=== PATIENT | male | born 1965 | race African-American/Black ===

== ENCOUNTER 2019-11-25 16:44 | Inpatient (IN) | payer SELFPAY ==
--- NOTE | 2019-11-25 16:53 | PDOC ---
Rapid Medical Evaluation Time Seen by Provider: 11/25/19 16:47 Medical Evaluation: 11/25/19 16:47 HPI: 54 year old male no pmhx presenting with fever chills abdominal pain w/ associated N/V/D Also complaining of mild CP PE: Diaphoretic CTA RRR Abdomen nonttp A/P: EKG Chest XR Labs Tylenol Pt to precede to ED for further evaluation and treatment.
[2019-11-25] MEDS ORDERED: ACETAMINOPHEN 500 MG TABLET (FP) PO ONE (16:54)
[2019-11-25] MEDS ORDERED: SODIUM CHLORIDE 0.9% 500 ML INFUS.BAG IV ONE ×2 (16:55→18:41)
[2019-11-25] MEDS ORDERED: ACETAMINOPHEN 325 MG TABLET (FP) ONE (17:19)
[2019-11-25] MEDS ORDERED: LACTATED RINGERS SOLUTION 1000 ML INFUS.BAG IV ONE (17:25)
--- NOTE | 2019-11-25 17:42 | PDOC ---
History of Present Illness - General Chief Complaint: Nausea/Vomiting Stated Complaint: FEVER/NAUSEA/DIARRHEA Time Seen by Provider: 11/25/19 16:47 History Source: Patient Exam Limitations: No Limitations - History of Present Illness Initial Comments: 11/25/19 17:42 54y previously healthy M presenting w 2d subjective fevers, white productive cough, body aches, diarrhea. taking tylenol w/o relief. no known covid exposures. Pt endorses being unable to drink enough PO fluids to replace fluids lost w diarrhea. Denies n/v, SOB, dysuria. Past History - Medical History Allergies/Adverse Reactions: Allergies Allergy/AdvReac Type Severity Reaction Status Date / Time No Known Allergies Allergy Verified 11/25/19 16:47 COPD: No HTN: Yes - Immunization History Immunization Up to Date: Yes - Psycho-Social/Smoking History Smoking History: Current every day smoker Information on smoking cessation initiated: No - Substance Abuse Hx (Audit-C & DAST Scrn) How often the patient has a drink containing alcohol: Never Score: In Men: 4 or > Positive; In Women: 3 or > Positive: 0 Screen Result (Pos requires Nsg. Audit-10AR): Negative In the last yr the pt used illegal drug/Rx for NonMed reason: No Score: Yes response is considered Positive: 0 Screen Result (Positive result requires Nsg. DAST-10): Negative Review of Systems - Review of Systems Constitutional: Yes: Chills, Fever HEENTM: No: Eye Pain, Nose Congestion Respiratory: Yes: Cough. No: Shortness of Breath Cardiac (ROS): No: Chest Pain ABD/GI: Yes: Diarrhea. No: Constipated, Nausea, Vomiting : No: Burning, Dysuria Musculoskeletal: Yes: Muscle Pain. No: Back Pain Integumentary: No: Bruising, Flushing Neurological: No: Headache, Seizure Psychiatric: No: Anxiety, Depression Endocrine: No: Intolerance to Cold, Intolerance to Heat Hematologic/Lymphatic: No: Anemia, Blood Clots *Physical Exam - Vital Signs Last Vital Signs Temp Pulse Resp BP Pulse Ox 102.3 F H 88 20 175/103 H 95 11/25/19 16:48 11/25/19 16:48 11/25/19 16:48 11/25/19 16:48 11/25/19 16:48 - Physical Exam General Appearance: Yes: Nourished, Appropriately Dressed, Mild Distress HEENT: positive: EOMI, SUPRIYA, Normal Voice, Hearing Grossly Normal. negative: Sc leral Icterus (R), Scleral Icterus (L) Respiratory/Chest: positive: Lungs Clear, Normal Breath Sounds. negative: Chest Tender, Respiratory Distress Cardiovascular: positive: Regular Rhythm, Regular Rate, S1, S2, Systolic Murmur Gastrointestinal/Abdominal: positive: Normal Bowel Sounds, Flat, Soft. negative: Tender, Organomegaly Musculoskeletal: negative: CVA Tenderness (R), CVA Tenderness (L) Extremity: positive: Delayed Capillary Refill Integumentary: positive: Normal Color, Dry, Warm. negative: Rash Neurologic: positive: Fully Oriented, Alert, Normal Mood/Affect, Normal Response ED Treatment Course - LABORATORY CBC & Chemistry Diagram: 11/25/19 17:30 11/25/19 17:30 Medical Decision Making - Medical Decision Making 11/25/19 17:56 CXR - increased density R medial base atelectasis vs infiltrate EKG - sinus rhythm w arrhythmia, HR 61, QTc 390, TWI V1-2 WBC 13 w L shift --- 54y previously healthy M presenting w 2d subjective fevers, white productive cough, body aches, diarrhea. likely d/t covid PNA (infiltrate R medial base) Given 2L fluids, tylenol, ibuprofen, azithromycin, rocephin, decadron, reglan, KCl Admit m/s hospitalist for covid PNA, inability to replete fluids via PO PCP - none, [facility] Discharge - Discharge Information Problems reviewed: Yes Clinical Impression/Diagnosis: Suspected COVID-19 virus infection PNA (pneumonia) Qualifiers: Pneumonia type: due to unspecified organism Laterality: right Lung location: lower lobe of lung Qualified Code(s): J18.9 - Pneumonia, unspecified organism Condition: Improved - Admission Yes - Follow up/Referral - Patient Discharge Instructions - Post Discharge Activity
[2019-11-25] MEDS ORDERED: DEXAMETHASONE SOD PHOSPHATE 10 MG/1 ML VIAL IVPUSH ONE (17:54)
[2019-11-25] MEDS ORDERED: IBUPROFEN 600 MG TABLET (FP) PO ONE ×2 (18:02→18:32)
[2019-11-25 18:08] LABS: BASO % 0.4 % (0-2.0); HEMATOCRIT 44.2 % (35.4-49); HEMOGLOBIN 14.7 GM/dL (11.7-16.9); LYMPH % 9.1 % (8-40); MCH 29.1 pg (25.7-33.7); MCHC 33.3 g/dl (32.0-35.9); MEAN CELL VOLUME 87.4 fl (80-96); MEAN PLT VOLUME 9.2 fl (7.5-11.1); MONO % 5.9 % (3.8-10.2); NEUT % 84.6 % (42.8-82.8); PLATELET COUNT 237 K/MM3 (134-434); RBC 5.06 M/mm3 (4.00-5.60); RDW 14.1 % (11.9-15.9); WHITE BLOOD COUNT 13.4 K/mm3 (4.0-10.0)
[2019-11-25 18:16] LABS: BILIRUBIN,DIRECT 0.2 mg/dL (0.0-0.2); INR 1.43 (0.83-1.09); PROTHROMBIN TIME (PATIENT) 16.9 SEC (9.7-13.0)
[2019-11-25 18:18] LABS: ACTIVATED PTT 32.6 SECONDS (25.2-36.5)
[2019-11-25 18:22] LABS: ALBUMIN 3.4 g/dl (3.4-5.0); ALK PHOS 98 U/L (45-117); ANION GAP 10 MMOL/L (8-16); BILIRUBIN,TOTAL 0.6 mg/dL (0.2-1); BLOOD UREA NITROGEN 9.3 mg/dL (7-18); CHLORIDE 96 mmol/L (98-107); CO2 26 mmol/L (21-32); CREATININE 1.1 mg/dL (0.55-1.3); GLUCOSE,RANDOM 117 mg/dL (74-106); LDH 314 U/L (87-246); LIPASE 116 U/L (73-393); POTASSIUM 3.1 mmol/L (3.5-5.1); SGOT/AST 64 U/L (15-37); SGPT/ALT 67 U/L (13-61); SODIUM 132 mmol/L (136-145); TOT PROT 7.6 g/dl (6.4-8.2)
[2019-11-25] MEDS ORDERED: METOCLOPRAMIDE HCL INJECTION 10 MG/2 ML VIAL IVPB ONE (18:24)
[2019-11-25] MEDS ORDERED: POTASSIUM CHLORIDE ORAL LIQUID 20 MEQ/15 ML PO ONE (18:25)
[2019-11-25] MEDS ORDERED: METOCLOPRAMIDE HCL INJECTION 10 MG/2 ML VIAL ONE (18:31)
[2019-11-25] MEDS ORDERED: DEXAMETHASONE SOD PHOSPHATE 10 MG/1 ML VIAL ONE (18:31)
[2019-11-25] MEDS ORDERED: POTASSIUM CHLORIDE ORAL LIQUID 20 MEQ/15 ML ONE (18:32)
--- NOTE | 2019-11-25 19:04 | PDOC ---
Documentation entered by Donna Dorado SCRIBE, acting as scribe for Brandy Key MD. Brandy Key MD: This documentation has been prepared by the Estrada gramajo Xhesika, SCRIBE, under my direction and personally reviewed by me in its entirety. I confirm that the documentation accurately reflects all work, treatment, procedures, and medical decision making performed by me. Attending Attestation - Resident Resident Name: Elijah Sanchez - ED Attending Attestation I have performed the following: I have examined & evaluated the patient, The case was reviewed & discussed with the resident, I agree w/resident's findings & plan, Exceptions are as noted - HPI HPI: 11/25/19 17:47 The patient is a 54y/o m with no pmh who presents to the ED with subjective fevers, white productive cough, bodyaches, and profuse diarrhea unable to keep himself hydrated at home, as well as profuse diaphoresis. Pt reports he has been taking Tylenol with no relief of symptoms. Denies any specific areas of worsened pain (no specific CP, AP, back pain). Has been taking OTC medications for sxs but no abx or other Rx for symptoms. 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 Patient expresses concern for COVID-19. The patient denies shortness of breath, headache and dizziness. Denies nausea, vomiting. Denies dysuria, frequency, urgency and hematuria. Allergies: NKDA - Physicial Exam PE: 11/25/19 18:45 GENERAL: ill-appearing, diaphoretic, A/Ox4, mild distress, answers questions appropriately, appears dehydrated, wearing face mask HEENT: diaphoreic, PERRLA, EOMI, dry mucous membranes NECK/BACK: no midline ttp, no spinal stepoff or deformity, no hematoma, full ROM, neck supple CARDIOVASCULAR: regular rhythm, no MGR, strong peripheral pulses, capillary refill 4 seconds, no edema LUNGS/RESPIRATORY: tachypneic, increased WOB, cough noted, coarse breath sounds bilaterally without focal area of decreased breath sounds GI/ABDOMEN: symmetric [id number], normoactive BS, soft, no ttp, no midline pulsatile masses : no CVA tenderness MSK/EXTREMITIES: no muscle atrophy, no acute deformity SKIN: warm, diaphoretic, no pallor, no jaundice, no rash, no pathologic- appearing bruising, no skin breakdown, no cuts, no lesions NEUROLOGICAL: GCS 15, CN II-XII grossly intact, 5/5 strength proximally and di stally, no facial droop - Medical Decision Making 11/25/19 18:47 Patient presents with fever, malaise, diaphoresis, profuse diarrhea, head-to-toe body achesc/f COVID-19 in the setting of COVID-19 pandemic. DDX IBNLT: likely COVID-19 with c/f sequelae (ARDS, myocarditis). Superimposed bacterial PNA considered as well. COPD/asthma/CHF exacerbation or other underlying lung disease possible contributing factor. Less likely influenza, bronchitis, other viral URI, laryngitis, tracheitis, etc. Initial Vital Signs Temp Pulse Resp BP Pulse Ox 102.3 F H 88 20 175/103 H 95 11/25/19 16:48 11/25/19 16:48 11/25/19 16:48 11/25/19 16:48 11/25/19 16:48 EKG: Reviewed; results as noted in ECG Review section. CXR: Diffuse bilateral patchy consolidations, right basilar consolidation c/w possible PNA. Provider Orders Category Date Time Status Decision to Admit to Hospital Routine Admission 11/25/19 18:26 Active TYPE AND SCREEN Stat Blood Bank 11/25/19 17:30 Completed ELECTROCARDIOGRAM [CARD] Stat Cardiology 11/25/19 16:53 Ordered EKG needed NOW Care 11/25/19 16:54 Completed Isolation Precautions As directed Care 11/25/19 17:26 Active Pulse Oximetry Continuous Care 11/25/19 17:27 Active ACTIVATED PTT Stat Lab 11/25/19 17:30 Completed BILIRUBIN,DIRECT Stat Lab 11/25/19 17:30 Completed CARDIAC PROFILE ([facility]) Stat Lab 11/25/19 17:30 Completed CBC WITH DIFFERENTIAL Stat Lab 11/25/19 17:30 Completed CK INDEX Stat Lab 11/25/19 17:30 Completed CK MB Stat Lab 11/25/19 17:30 Completed COMP METABOLIC PANEL Stat Lab 11/25/19 17:30 Completed COVID-19 Stat Lab 11/25/19 17:30 Received CRP [C-REACTIVE PROTEIN] Stat Lab 11/25/19 17:30 Completed FERRITIN Stat Lab 11/25/19 17:30 Completed LDH Stat Lab 11/25/19 17:30 Completed LIPASE Stat Lab 11/25/19 17:30 Completed PT/INR (PROTHROMBIN TIME) Stat Lab 11/25/19 17:30 Completed Acetaminophen [Tylenol -] Medication 11/25/19 17:19 Discontinued 975 mg .ROUTE .STK-MED ONE Acetaminophen [Tylenol -] Medication 11/25/19 16:54 Discontinued 975 mg PO ONCE ONE Azithromycin Ivpb [Zithromax Ivpb -] 500 mg Medication 11/25/19 19:07 Discontinued Dextrose 5%-Water - [D5w -] 250 ml IVPB ONCE Ceftriaxone [Rocephin -] 1 gm Medication 11/25/19 19:07 Discontinued Dextrose 5%-Water - [D5w -] 100 ml IVPB ONCE Dexamethasone Injection [Decadron Injection -] Medication 11/25/19 18:31 Discontinued 10 mg .ROUTE .STK-MED ONE Dexamethasone Injection [Decadron Injection -] Medication 11/25/19 17:54 Discontinued 10 mg IVPUSH ONCE ONE Ibuprofen [Motrin -] Medication 11/25/19 18:32 Discontinued 600 mg PO .STK-MED ONE Ibuprofen [Motrin -] Medication 11/25/19 18:02 Discontinued 600 mg PO ONCE ONE Lactated Ringers Solution Medication 11/25/19 17:25 Discontinued 1,000 ml IV ONCE ONE Metoclopramide HCl Injection [Reglan Injection -] Medication 11/25/19 18:31 Discontinued 10 mg .ROUTE .STK-MED ONE Metoclopramide HCl Injection [Reglan Injection -] Medication 11/25/19 18:24 Discontinued 10 mg IVPB ONCE ONE Potassium Chloride [Potassium Chloride Oral Liquid] Medication 11/25/19 18:32 Discontinued 40 meq .ROUTE .STK-MED ONE Potassium Chloride [Potassium Chloride Oral Liquid] Medication 11/25/19 18:25 Discontinued 40 meq PO ONCE ONE Sodium Chloride [Normal Saline -] Medication 11/25/19 16:55 Discontinued 1,000 ml IV ONCE ONE Sodium Chloride [Normal Saline -] Medication 11/25/19 18:41 Discontinued 1,000 ml IV ONCE ONE IV Insert NOW Phy Order 11/25/19 16:54 Active CXRPORT [CHEST X-RAY PORTABLE*] [RAD] Stat Radiology 11/25/19 17:26 Completed Medications Discontinued Medications Generic Name Dose Route Start Last Admin Trade Name Dagoberto PRN Reason Stop Dose Admin Acetaminophen 975 mg 11/25/19 16:54 11/25/19 17:20 Tylenol - PO 11/25/19 16:55 975 mg ONCE ONE Administration Acetaminophen Confirm 11/25/19 17:19 Tylenol - Administered 11/25/19 17:20 Dose 975 mg .ROUTE .STK-MED ONE Dexamethasone Sodium Phosphate 10 mg 11/25/19 17:54 11/25/19 18:25 Decadron Injection - IVPUSH 11/25/19 17:55 10 mg ONCE ONE Administration Dexamethasone Sodium Phosphate Confirm 11/25/19 18:31 Decadron Injection - Administered 11/25/19 18:32 Dose 10 mg .ROUTE .STK-MED ONE Azithromycin 500 mg/ Dextrose 250 mls @ 250 mls/hr 11/25/19 19:07 IVPB 11/25/19 20:06 ONCE ONE Ceftriaxone Sodium 1 gm/ 100 mls @ 200 mls/hr 11/25/19 19:07 Dextrose IVPB 11/25/19 19:36 ONCE ONE Azithromycin Confirm 11/25/19 20:08 Zithromax 500mg Ivpb (Pre-Docked) Administered 11/25/19 20:09 Dose 500 mg in 250 mls @ ud IVPB .STK-MED ONE Ibuprofen 600 mg 11/25/19 18:02 11/25/19 18:25 Motrin - PO 11/25/19 18:03 600 mg ONCE ONE Administration Ibuprofen Confirm 11/25/19 18:32 Motrin - Administered 11/25/19 18:33 Dose 600 mg PO .STK-MED ONE Lactated Ringer's 1,000 ml 11/25/19 17:25 11/25/19 17:43 Lactated Ringers Solution IV 11/25/19 17:26 1,000 ml ONCE ONE Administration Metoclopramide HCl 10 mg 11/25/19 18:24 11/25/19 18:52 Reglan Injection - IVPB 11/25/19 18:25 10 mg ONCE ONE Administration Metoclopramide HCl Confirm 11/25/19 18:31 Reglan Injection - Administered 11/25/19 18:32 Dose 10 mg .ROUTE .STK-MED ONE Potassium Chloride 40 meq 11/25/19 18:25 11/25/19 18:45 Potassium Chloride Oral Liquid PO 11/25/19 18:26 40 meq ONCE ONE Administration Potassium Chloride Confirm 11/25/19 18:32 Potassium Chloride Oral Liquid Administered 11/25/19 18:33 Dose 40 meq .ROUTE .STK-MED ONE Sodium Chloride 1,000 ml 11/25/19 16:55 11/25/19 17:43 Normal Saline - IV 11/25/19 16:56 Not Given ONCE ONE Sodium Chloride 1,000 ml 11/25/19 18:41 11/25/19 18:45 Normal Saline - IV 11/25/19 18:42 1,000 ml ONCE ONE Administration Lab Results WBC 13.4 K/mm3 (4.0-10.0) H 11/25/19 17:30 RBC 5.06 M/mm3 (4.00-5.60) 11/25/19 17:30 Hgb 14.7 GM/dL (11.7-16.9) 11/25/19 17:30 Hct 44.2 % (35.4-49) 11/25/19 17:30 MCV 87.4 fl (80-96) 11/25/19 17:30 MCH 29.1 pg (25.7-33.7) 11/25/19 17:30 MCHC 33.3 g/dl (32.0-35.9) 11/25/19 17:30 RDW 14.1 % (11.9-15.9) 11/25/19 17:30 Plt Count 237 K/MM3 (134-434) 11/25/19 17:30 MPV 9.2 fl (7.5-11.1) 11/25/19 17:30 Absolute Neuts (auto) 11.3 K/mm3 (1.5-8.0) H 11/25/19 17:30 Neutrophils % 84.6 % (42.8-82.8) H 11/25/19 17:30 Lymphocytes % 9.1 % (8-40) 11/25/19 17:30 Monocytes % 5.9 % (3.8-10.2) 11/25/19 17:30 Eosinophils % 0.0 % (0-4.5) 11/25/19 17:30 Basophils % 0.4 % (0-2.0) 11/25/19 17:30 Nucleated RBC % 0 % (0-0) 11/25/19 17:30 PT with INR 16.90 SEC (9.7-13.0) H 11/25/19 17:30 INR 1.43 (0.83-1.09) H 11/25/19 17:30 PTT (Actin FS) 32.6 SECONDS (25.2-36.5) 11/25/19 17:30 Sodium 132 mmol/L (136-145) L 11/25/19 17:30 Potassium 3.1 mmol/L (3.5-5.1) L 11/25/19 17:30 Chloride 96 mmol/L (98-107) L 11/25/19 17:30 Carbon Dioxide 26 mmol/L (21-32) 11/25/19 17:30 Anion Gap 10 MMOL/L (8-16) 11/25/19 17:30 BUN 9.3 mg/dL (7-18) 11/25/19 17:30 Creatinine 1.1 mg/dL (0.55-1.3) 11/25/19 17:30 Est GFR (CKD-EPI)AfAm 87.13 11/25/19 17:30 Est GFR (CKD-EPI)NonAf 75.17 11/25/19 17:30 Random Glucose 117 mg/dL (74-106) H 11/25/19 17:30 Calcium 9.0 mg/dL (8.5-10.1) 11/25/19 17:30 Ferritin 426.9 ng/ml (8-388) H 11/25/19 17:30 Total Bilirubin 0.6 mg/dL (0.2-1) 11/25/19 17:30 Direct Bilirubin 0.2 mg/dL (0.0-0.2) 11/25/19 17:30 AST 64 U/L (15-37) H 11/25/19 17:30 ALT 67 U/L (13-61) H 11/25/19 17:30 Alkaline Phosphatase 98 U/L (45-117) 11/25/19 17:30 LD Total 314 U/L (87-246) H 11/25/19 17:30 Creatine Kinase 442 U/L (26-308) H 11/25/19 17:30 Creatine Kinase Index No Result Required. 11/25/19 17:30 CK-MB (CK-2) < 1.0 ng/mL (0.5-3.6) 11/25/19 17:30 Troponin I < 0.02 ng/ml (0.00-0.05) 11/25/19 17:30 C-Reactive Protein 15.4 MG/DL (0.00-0.3) H 11/25/19 17:30 Total Protein 7.6 g/dl (6.4-8.2) 11/25/19 17:30 Albumin 3.4 g/dl (3.4-5.0) 11/25/19 17:30 Lipase 116 U/L (73-393) 11/25/19 17:30 Blood Type O POSITIVE 11/25/19 17:30 Antibody Screen Negative 11/25/19 17:30 11/25/19 19:42 The patient remains with diaphoresis, has had multiple episodes of diarrhea in the ED, has RLL PNA requiring abx. The Pt is high-risk for home decompensation, has young child at home and is very concerned about spreading to his child, and is unsafe for discharge at this time. They require further hospital observation, workup, and treatment. Admission per resident note. Discharge - Discharge Information Problems reviewed: Yes Clinical Impression/Diagnosis: Suspected COVID-19 virus infection PNA (pneumonia) Qualifiers: Pneumonia type: due to unspecified organism Laterality: right Lung location: lower lobe of lung Qualified Code(s): J18.9 - Pneumonia, unspecified organism Condition: Improved - Admission Yes - Follow up/Referral - Patient Discharge Instructions - Post Discharge Activity
[2019-11-25] MEDS ORDERED: AZITHROMYCIN IVPB 500 MG in DEXTROSE 5%-WATER - 250 ML IVPB ONE (19:07)
[2019-11-25] MEDS ORDERED: AZITHROMYCIN IVPB 500 MG/250 ML BAG IVPB ONE (20:08)
--- NOTE | 2019-11-25 20:51 | HP ---
CHIEF COMPLAINT: fever, chills, diarrhea PCP: unable to recall name HISTORY OF PRESENT ILLNESS: 54yo M with PMhx of HTN and longstanding tobacco use who presents with 2 days of fevers, chills, diaphoresis, weakness and body aches. He explained that everything started two days ago when he thought it may be a cold of the flu. He figured some fluids and flu meds would help but instead he continued to feel worse. Yesterday the chills got really bad where he experiences profuse diaphoresis and cold spells. He has also had diarrhea that has not gotten any better. He endorses occasional headaches, dizziness, and achy joints. Denied dysuria, urinary frequency, SOB, CP, vertigo. 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 Home: lives with girlfriend and 6yo son Allergies No Known Allergies Allergy (Verified 11/25/19 16:47) HOME MEDICATIONS: Home Medications Medication Instructions Recorded Hydrochlorothiazide 25 mg PO DAILY 11/25/19 Lisinopril 10 mg PO DAILY 11/25/19 REVIEW OF SYSTEMS as per above PHYSICAL EXAMINATION Vital Signs - 24 hr 11/25/19 11/25/19 11/25/19 16:48 17:10 17:40 Temperature 102.3 F H Pulse Rate 88 88 Pulse Rate [ 86 Left Radial] Respiratory 20 26 H Rate Blood Pressure 175/103 H Blood Pressure 159/83 [Left Arm] O2 Sat by Pulse 95 97 97 Oximetry (%) 11/25/19 11/25/19 20:31 20:40 Temperature 97.8 F Pulse Rate Pulse Rate [ 62 Left Radial] Respiratory 18 Rate Blood Pressure Blood Pressure 137/74 [Left Arm] O2 Sat by Pulse 98 99 Oximetry (%) GENERAL: AAM, appears stated age, sleeping in ED bed but easily arousable, not feeling well but in no acute distress HEAD: Normal with no signs of trauma EYES: did not assess to minimize exposure due to possible COVID LUNGS: expiratory wheezing in LLL, otherwise CTA HEART: irregular, S1 and S2 with soft systolic murmur ABDOMEN: did not assess to minimize exposure due to possible COVID EXTREMITIES: did not assess to minimize exposure due to possible COVID NEUROLOGICAL: Cranial nerves II-XII grossly intact, normal speech PSYCHIATRIC: Cooperative and responds appropriately. Appropriate mood and affect. SKIN: did not assess to minimize exposure due to possible COVID Laboratory Results - last 24 hr 11/25/19 11/25/19 11/25/19 17:30 17:30 17:30 WBC 13.4 H RBC 5.06 Hgb 14.7 Hct 44.2 MCV 87.4 MCH 29.1 MCHC 33.3 RDW 14.1 Plt Count 237 MPV 9.2 Absolute Neuts (auto) 11.3 H Neutrophils % 84.6 H Lymphocytes % 9.1 Monocytes % 5.9 Eosinophils % 0.0 Basophils % 0.4 Nucleated RBC % 0 PT with INR 16.90 H INR 1.43 H PTT (Actin FS) 32.6 Sodium 132 L Potassium 3.1 L Chloride 96 L Carbon Dioxide 26 Anion Gap 10 BUN 9.3 Creatinine 1.1 Est GFR (CKD-EPI)AfAm 87.13 Est GFR (CKD-EPI)NonAf 75.17 Random Glucose 117 H Calcium 9.0 Ferritin 426.9 H Total Bilirubin 0.6 Direct Bilirubin AST 64 H ALT 67 H Alkaline Phosphatase 98 LD Total 314 H Creatine Kinase 442 H Creatine Kinase Index No Result Required. CK-MB (CK-2) < 1.0 Troponin I < 0.02 C-Reactive Protein Total Protein 7.6 Albumin 3.4 Lipase 116 Blood Type Antibody Screen 11/25/19 11/25/19 17:30 17:30 WBC RBC Hgb Hct MCV MCH MCHC RDW Plt Count MPV Absolute Neuts (auto) Neutrophils % Lymphocytes % Monocytes % Eosinophils % Basophils % Nucleated RBC % PT with INR INR PTT (Actin FS) Sodium Potassium Chloride Carbon Dioxide Anion Gap BUN Creatinine Est GFR (CKD-EPI)AfAm Est GFR (CKD-EPI)NonAf Random Glucose Calcium Ferritin Total Bilirubin Direct Bilirubin 0.2 AST ALT Alkaline Phosphatase LD Total Creatine Kinase Creatine Kinase Index CK-MB (CK-2) Troponin I C-Reactive Protein 15.4 H Total Protein Albumin Lipase Blood Type O POSITIVE Antibody Screen Negative ASSESSMENT/PLAN: 54yo M with PMhx of HTN and longstanding tobacco use who presents with 2 days of fevers, chills, diaphoresis, weakness and body aches, and diarrhea and is admitted for treatment of COVID vs PNA. #COVID vs PNA patient is satting 97% breathing comfotably on RA T 102.3F WBC 13.4 ferritin 426.9, LD 314, CK 442, CRP 15.4 CXR: medial right base atelectasis or infiltrate - ID consult - pulm consult - d-dimer - ceftriaxone + azithromycin for empiric coverage #HTN - restarted home HCTZ and lisinopril #PPX - DVT: lovenox #FEN - replete lyes PRN - sodium controlled diet - no standing fluids #Dispo: continue monitoring on medSur Family Medical History Family History: As Documented Visit type - Emergency Visit Emergency Visit: Yes ED Registration Date: 11/25/19 Care time: The patient presented to the Emergency Department on the above date and was hospitalized for further evaluation of their emergent condition. - New Patient This patient is new to me today: Yes Date on this admission: 11/25/19 - Critical Care Critical Care patient: No ATTENDING PHYSICIAN STATEMENT I saw and evaluated the patient. I reviewed the resident's note and discussed the case with the resident. I agree with the resident's findings and plan as documented. SUBJECTIVE: OBJECTIVE: ASSESSMENT AND PLAN:
[2019-11-25] MEDS ORDERED: CEFTRIAXONE 1 GM/50 ML BAG ONE (21:35)
[2019-11-25] MEDS: CEFTRIAXONE 1 GM in DEXTROSE 5%-WATER - 100 ML IVPB ONE ×2 (22:29→23:56)
[2019-11-25] MEDS: ENOXAPARIN NA (PORCINE) 40 MG/0.4 ML DISP.SYRIN SQ SCH (22:30)
[2019-11-25 22:57] VITALS: BMI 26.4
[2019-11-25] MEDS ORDERED: PT OWN MED DRAWER 7, Y5N ONE (23:34)
--- NOTE | 2019-11-26 03:50 | PN ---
Teaching Attending Note Name of Resident: Pj Blandon ATTENDING PHYSICIAN STATEMENT I saw and evaluated the patient. I reviewed the resident's note and discussed the case with the resident. I agree with the resident's findings and plan as documented. SUBJECTIVE: OBJECTIVE: ASSESSMENT AND PLAN: DOS 11/24 54 year old male with a PMhx notable for HTN and longstanding tobacco use who presents with complaints of fevers/chills x 2 days. Rule out COVID vs bacterial PNA #COVID vs PNA Stable respiratory status on room air CXR with possible infiltrate - Agree with antibiotics - ID/Pulmonary consults # Hyponatremia - likely related to dehydration in the setting of acute illness s/p IV fluids Repeat labs #HTN - For now hold home HCTZ in the setting of hyponatremia. Ok for lisinopril
[2019-11-26] MEDS ORDERED: ACETAMINOPHEN 325 MG TABLET (FP) PO ONE (04:55)
--- NOTE | 2019-11-26 08:06 | PN ---
Progress Note (short form) - Note Progress Note: PULMONARY CONSULTATION DICTATED 11/26/19 IMP FEVER/CHILLS SUSPECTED COVID-19 RLL PNEUMONIA HTN TOBACCO ABUSE ELEVATED LFTS PLAN O2 INHALED BRONCHODILATORS ABX PER ID TREND LFTS MONITOR INFLAMMATORY MARKERS CULTURES COVID PCR PENDING LEGIONELLA URINARY ANTIGEN SYMBICORT 160/4.[address] ALEJANDRO Problem List - Problems (1) Fever Code(s): R50.9 - FEVER, UNSPECIFIED (2) PNA (pneumonia) Code(s): J18.9 - PNEUMONIA, UNSPECIFIED ORGANISM Qualifiers: Pneumonia type: due to unspecified organism Laterality: right Lung location: lower lobe of lung Qualified Code(s): J18.9 - Pneumonia, unspecified organism (3) Suspected COVID-19 virus infection Code(s): Z20.828 - CONTACT W AND EXPOSURE TO OTH VIRAL COMMUNICABLE DISEASES (4) HTN (hypertension) Code(s): I10 - ESSENTIAL (PRIMARY) HYPERTENSION (5) Tobacco abuse Code(s): Z72.0 - TOBACCO USE (6) Tobacco abuse counseling Code(s): Z71.6 - TOBACCO ABUSE COUNSELING
[2019-11-26 09:41] LABS: BASO % 0.2 % (0-2.0); EOS % 0.5 % (0-4.5); LYMPH % 5.5 % (8-40); MCH 29.2 pg (25.7-33.7); MCHC 33.4 g/dl (32.0-35.9); MEAN CELL VOLUME 87.4 fl (80-96); MEAN PLT VOLUME 9.5 fl (7.5-11.1); NEUT % 89.8 % (42.8-82.8); PLATELET COUNT 251 K/MM3 (134-434); RBC 5.49 M/mm3 (4.00-5.60); RDW 14.5 % (11.9-15.9); WHITE BLOOD COUNT 15.3 K/mm3 (4.0-10.0)
[2019-11-26] MEDS: ENOXAPARIN NA (PORCINE) 40 MG/0.4 ML DISP.SYRIN SQ SCH (09:47)
[2019-11-26] MEDS ORDERED: HYDROCHLOROTHIAZIDE 25 MG TABLET (FP) PO SCH (10:00)
[2019-11-26] MEDS ORDERED: LISINOPRIL 10 MG TABLET (FP) PO SCH (10:00)
--- NOTE | 2019-11-26 10:05 | EKG ---
Test Reason : Blood Pressure : / mmHG Vent. Rate : 061 BPM Atrial Rate : 061 BPM P-R Int : 154 ms QRS Dur : 086 ms QT Int : 388 ms P-R-T Axes : 068 070 063 degrees QTc Int : 390 ms SINUS RHYTHM WITH MARKED SINUS ARRHYTHMIA , and occasional APC's POSSIBLE LEFT ATRIAL ENLARGEMENT BORDERLINE ECG NO PREVIOUS ECGS AVAILABLE Confirmed by MD Dhaliwal Daniel ([id number]) on 11/26/2019 10:05:15 AM Referred By: Confirmed By:Arias Dhaliwal MD
--- NOTE | 2019-11-26 10:05 | CON.ID ---
Consult Consult Specialty:: infectious diseases Referred by:: hospitalist Reason for Consultation:: cough,fever,r/o covid - History of Present Illness Chief Complaint: cough,fever,weakness History of Present Illness: 54yo M with PMhx of HTN and longstanding tobacco use who presents with 2 days of fevers, chills, diaphoresis, weakness and body aches. He explained that everything started two days ago when he thought it may be a cold of the flu. He figured some fluids and flu meds would help but instead he continued to feel worse. Yesterday the chills got really bad where he experiences profuse diaphoresis and cold spells. He has also had diarrhea that has not gotten any better. He endorses occasional headaches, dizziness, and achy joints. Denied dysuria, urinary frequency, SOB, CP, vertigo. COVID pending patient mentins that he went to somebodys house about 5 days back and then again 2 days back and actually he started feeling wierd about 5 days back and then became worse about 2 days back mentions that he also smokes weed but no iv drugs currently he is feeling better and breathing well - History Source History Provided By: Patient Limitations to Obtaining History: No Limitations - Smoking History Smoking history: Current every day smoker Have you smoked in the past 12 months: Yes Aproximately how many cigarettes per day: 5 Home Medications - Allergies Allergies/Adverse Reactions: Allergies Allergy/AdvReac Type Severity Reaction Status Date / Time No Known Allergies Allergy Verified 11/25/19 16:47 - Home Medications Home Medications: Ambulatory Orders Hydrochlorothiazide 25 mg PO DAILY 11/25/19 Lisinopril 10 mg PO DAILY 11/25/19 Review of Systems - Review of Systems Constitutional: reports: Fever, Weakness Eyes: reports: No Symptoms HENT: reports: No Symptoms Neck: reports: No Symptoms Cardiovascular: reports: No Symptoms Respiratory: reports: No Symptoms Gastrointestinal: reports: Diarrhea Genitourinary: reports: No Symptoms Musculoskeletal: reports: No Symptoms Integumentary: reports: No Symptoms Neurological: reports: No Symptoms Endocrine: reports: No Symptoms Hematology/Lymphatic: reports: No Symptoms Psychiatric: reports: No Symptoms Physical Exam Vital Signs: Vital Signs Temperature 98.1 F 11/26/19 05:00 Pulse Rate 47 L 11/26/19 05:00 Respiratory Rate 16 11/26/19 05:00 Blood Pressure 167/86 11/26/19 05:00 O2 Sat by Pulse Oximetry (%) 99 11/26/19 05:00 Constitutional: Yes: Well Nourished, No Distress, Calm HENT: Yes: Atraumatic, Normocephalic Neck: Yes: Supple, Trachea Midline Cardiovascular: Yes: Regular Rate and Rhythm Respiratory: Yes: Regular, CTA Bilaterally Gastrointestinal: Yes: Normal Bowel Sounds, Soft Musculoskeletal: Yes: WNL Extremities: Yes: WNL Neurological: Yes: Alert, Oriented Psychiatric: Yes: Alert, Oriented Labs: CBC, BMP 11/26/19 09:05 Imaging - Results Chest X-ray: Report Reviewed, Image Reviewed Assessment/Plan 54yo M with PMhx of HTN and longstanding tobacco use who presents with 2 days of fevers, chills, diaphoresis, weakness and body aches, and diarrhea and is admitted for treatment of COVID vs PNA. presumed COVID vs PNA #HTN dirrhoea fever i agree wiht the abx i am leaning towards pneumonia will await for all the results incentive nola rest as per the team
[2019-11-26 10:11] LABS: ALBUMIN 3.3 g/dl (3.4-5.0); BILIRUBIN,TOTAL 0.7 mg/dL (0.2-1); BLOOD UREA NITROGEN 11.9 mg/dL (7-18); CALCIUM 9.2 mg/dL (8.5-10.1); MAGNESIUM 2.2 mg/dL (1.8-2.4); PHOSPHOROUS 2.7 mg/dL (2.5-4.9); POTASSIUM 3.3 mmol/L (3.5-5.1); TOT PROT 7.9 g/dl (6.4-8.2)
[2019-11-26] MEDS ORDERED: POTASSIUM CHLORIDE TABS 20 MEQ TABLET.ER (FP) PO ONE (10:35)
[2019-11-26] MEDS: HYDROCHLOROTHIAZIDE 25 MG TABLET (FP) PO SCH (11:40)
--- NOTE | 2019-11-26 13:58 | CONS ---
PULMONARY CONSULTATION DATE OF CONSULTATION: 11/26/2019 REFERRING PHYSICIAN: Linda Jay MD HISTORY: Patient is a 54-year-old male, past medical history of hypertension, tobacco abuse, admitted to [facility] with complaint of 2-day history of fever, chills, diaphoresis, diarrhea, weakness and body aches. He states that everything started a couple of days ago when he started developing flu-like symptoms. Apparently he took some fluids and flu medications which did not offer any improvement. He also complained of fevers, diaphoresis and cold spells, had diarrhea for 2 days. Denied any nausea or vomiting. Denied any loss of taste or smell. On admission the patient was noted to be febrile and mildly hypertensive. Chest x-ray revealed a right mid base atelectasis and/or infiltrate. He was admitted. He was started on IV fluid as well as antibiotic therapy for possible pneumonia. Of note is inflammatory markers were also elevated with elevated D-dimer, fibrinogen level as well as ferritin and CRP. COVID PCR is pending. Patient has a history of tobacco use for many years. Currently he still smokes about a half-pack a day. He denies any history of occupational exposures or chemical fumes. There is no history of recent travel. PAST MEDICAL HISTORY: Again includes hypertension as well as tobacco abuse. REVIEW OF SYSTEMS: Positive cough. Positive shortness of breath. Positive fever. Positive chills. Positive diarrhea. CURRENT MEDICATIONS: Include Symbicort 160/4.5, Prinivil, Zithromax, ceftriaxone, Lovenox and hydrochlorothiazide. PHYSICAL EXAMINATION: General: Patient is a well-developed, well-nourished male awake, alert in no acute distress. Vital Signs: He is currently afebrile. Blood pressure is 185/99. Respiratory rate is 18. O2 saturation is 96%. HEENT: Normocephalic, atraumatic. Neck: Supple. Heart: Regular with S1, S2. Chest: Few crackles at the right base. Abdomen: Soft. Bowel sounds are positive. Extremities: No cyanosis or edema. LABORATORIES: BUN is 11, creatinine 1.0, potassium 3.3. AST is 67. ALT is 98. Ferritin is 789. CRP is 17.6. WBC is 15.3, hemoglobin 16, hematocrit 48, platelet count of 251,000. Chest CT: Right lower lobe infiltrate. IMPRESSION: 1. Fever, chills, cough, suspected COVID-19 pneumonia. 2. Right lower lobe pneumonia possibly secondary to COVID, possible community-acquired. 3. Hypertension. 4. Tobacco abuse. 5. Elevated liver function tests. PLAN: Supplemental O2, inhaled bronchodilators. Monitor inflammatory markers. Obtain cultures. COVID PCR is pending, also legionella urinary antigen. Cold agglutinins. Also trend LFTs. Replete electrolytes. LINDA ALEJANDRO M.D. [id number]
--- NOTE | 2019-11-26 15:04 | PN ---
Physical Exam: SUBJECTIVE: Patient seen and examined. Pt. states he feels better today. He has never had a colonoscopy. Pt. states he ran out of his BP medications a few? days ago prior to admission but states that "he would know when his BP is very high because he would have blurry vision or headache. Pt. denies any chills or shortness of breath. OBJECTIVE: Vital Signs Period Temp Pulse Resp BP Sys/Massey Pulse Ox Last 24 Hr 97.8 F-102.3 F 47-88 16-26 137-185/61-103 95-99 GENERAL: The patient is awake, alert, and fully oriented, in no acute distress. HEAD: Normal with no signs of trauma. EYES: Sclera anicteric, conjunctiva clear. ENT: moist mucous membranes. NECK: Trachea midline, full range of motion, supple. LUNGS: Breath sounds equal, clear to auscultation bilaterally, no wheezes, no crackles, no accessory muscle use. HEART: Regular rate and rhythm, S1, S2 without murmur ABDOMEN: Soft, nontender, nondistended, normoactive bowel sounds, no guarding, no rebound EXTREMITIES: 2+ dorsal pedal pulses, warm, well-perfused, no edema. NEUROLOGICAL: Moves all extremities, Normal speech, gait not observed. PSYCH: Normal mood, normal affect. SKIN: Warm, dry, normal turgor Laboratory Results - last 24 hr 11/25/19 11/25/19 11/25/19 17:30 17:30 17:30 WBC 13.4 H RBC 5.06 Hgb 14.7 Hct 44.2 MCV 87.4 MCH 29.1 MCHC 33.3 RDW 14.1 Plt Count 237 MPV 9.2 Absolute Neuts (auto) 11.3 H Neutrophils % 84.6 H Lymphocytes % 9.1 Monocytes % 5.9 Eosinophils % 0.0 Basophils % 0.4 Nucleated RBC % 0 ESR PT with INR 16.90 H INR 1.43 H PTT (Actin FS) 32.6 Fibrinogen D-Dimer Sodium 132 L Potassium 3.1 L Chloride 96 L Carbon Dioxide 26 Anion Gap 10 BUN 9.3 Creatinine 1.1 Est GFR (CKD-EPI)AfAm 87.13 Est GFR (CKD-EPI)NonAf 75.17 Random Glucose 117 H Calcium 9.0 Phosphorus Magnesium Ferritin 426.9 H Total Bilirubin 0.6 Direct Bilirubin AST 64 H ALT 67 H Alkaline Phosphatase 98 LD Total 314 H Creatine Kinase 442 H Creatine Kinase Index No Result Required. CK-MB (CK-2) < 1.0 Troponin I < 0.02 C-Reactive Protein Total Protein 7.6 Albumin 3.4 Lipase 116 COVID-19 ([facility]) Blood Type Antibody Screen 11/25/19 11/25/19 11/25/19 17:30 17:30 17:30 WBC RBC Hgb Hct MCV MCH MCHC RDW Plt Count MPV Absolute Neuts (auto) Neutrophils % Lymphocytes % Monocytes % Eosinophils % Basophils % Nucleated RBC % ESR PT with INR INR PTT (Actin FS) Fibrinogen D-Dimer Sodium Potassium Chloride Carbon Dioxide Anion Gap BUN Creatinine Est GFR (CKD-EPI)AfAm Est GFR (CKD-EPI)NonAf Random Glucose Calcium Phosphorus Magnesium Ferritin Total Bilirubin Direct Bilirubin 0.2 AST ALT Alkaline Phosphatase LD Total Creatine Kinase Creatine Kinase Index CK-MB (CK-2) Troponin I C-Reactive Protein 15.4 H Total Protein Albumin Lipase COVID-19 ([facility]) Not detected Blood Type O POSITIVE Antibody Screen Negative 11/26/19 11/26/19 11/26/19 09:05 09:05 09:05 WBC 15.3 H RBC 5.49 Hgb 16.0 Hct 48.0 MCV 87.4 MCH 29.2 MCHC 33.4 RDW 14.5 Plt Count 251 MPV 9.5 Absolute Neuts (auto) 13.7 H Neutrophils % 89.8 H Lymphocytes % 5.5 L D Monocytes % 4.0 Eosinophils % 0.5 D Basophils % 0.2 Nucleated RBC % 0 ESR PT with INR INR PTT (Actin FS) Fibrinogen D-Dimer 896 H Sodium 137 Potassium 3.3 L Chloride 102 Carbon Dioxide 23 Anion Gap 12 BUN 11.9 Creatinine 1.0 Est GFR (CKD-EPI)AfAm 97.77 Est GFR (CKD-EPI)NonAf 84.35 Random Glucose 132 H Calcium 9.2 Phosphorus 2.7 Magnesium 2.2 Ferritin 789.3 H Total Bilirubin 0.7 Direct Bilirubin AST 67 H ALT 98 H Alkaline Phosphatase 101 LD Total 255 H Creatine Kinase Creatine Kinase Index CK-MB (CK-2) Troponin I C-Reactive Protein 17.6 H Total Protein 7.9 Albumin 3.3 L Lipase COVID-19 ([facility]) Blood Type Antibody Screen 11/26/19 11/26/19 09:05 09:05 WBC RBC Hgb Hct MCV MCH MCHC RDW Plt Count MPV Absolute Neuts (auto) Neutrophils % Lymphocytes % Monocytes % Eosinophils % Basophils % Nucleated RBC % ESR 33 H PT with INR INR PTT (Actin FS) Fibrinogen > 500.0 H D-Dimer Sodium Potassium Chloride Carbon Dioxide Anion Gap BUN Creatinine Est GFR (CKD-EPI)AfAm Est GFR (CKD-EPI)NonAf Random Glucose Calcium Phosphorus Magnesium Ferritin Total Bilirubin Direct Bilirubin AST ALT Alkaline Phosphatase LD Total Creatine Kinase Creatine Kinase Index CK-MB (CK-2) Troponin I C-Reactive Protein Total Protein Albumin Lipase COVID-19 ([facility]) Blood Type Antibody Screen Active Medications Generic Name Dose Route Start Last Admin Trade Name Freq PRN Reason Stop Dose Admin Budesonide/Formoterol Fumarate 2 puff 11/26/19 13:15 Symbicort 160/4.5mcg - IH BID TIMA Enoxaparin Sodium 40 mg 11/25/19 22:00 11/26/19 09:47 Lovenox - SQ 40 mg DAILY TIMA Administration Hydrochlorothiazide 25 mg 11/26/19 11:30 11/26/19 11:40 Hctz - PO 25 mg DAILY TIMA Administration Azithromycin 500 mg in 250 mls @ 250 mls/hr 11/26/19 19:00 Zithromax 500mg Ivpb (Pre-Docked) IVPB DAILY [facility] Ceftriaxone Sodium 1 gm/ 50 mls @ 200 mls/hr 11/26/19 19:00 Dextrose IVPB DAILY [facility] Protocol Lisinopril 20 mg 11/26/19 11:19 Prinivil PO DAILY [facility] Lisinopril 10 mg 11/26/19 18:00 Prinivil PO 11/26/19 18:01 ONCE ONE ASSESSMENT/PLAN: Pt. is a 54 y.o. M w/ PMHx. of HTN and longstanding tobacco use who presents with 2 days of fevers, chills, diaphoresis, weakness and body aches, and diarrhea and is admitted for treatment of COVID vs. PNA. #Suspected COVID- 19 infection vs. Community Acquired PNA - Pt. continues to saturate >95%, breathing comfortably on RA - Tmax today was 100 - WBC 13.4--> 15.3 - ferritin 426.9, LD 314, CK 442, CRP 15.4 - CXR: medial right base atelectasis or infiltrate; CT Chest consistent with R. lower lobe PNA and moderate hepatomegaly. MUST HAVE F/U CT after PNA treatment, may be bronchoalveolar carcinoma as they are also posterior basilar medial consolidation. Pt. is active smoker. - ID consult appreciated - pulm consult appreciated---> started on Symbicort - d-dimer, LDH, CRP, ferritin very elevated, will continue to trend. - ceftriaxone + azithromycin for empiric coverage - COVID-19 PCR negative #Transaminitis LFTs slight trending upwards f/u AM LFTs, if still increasing will obtain RUQ US CT chest showed moderate hepatomegaly Liver dysfunction likely associated w/ chronic MJ use, EtOH? vs. acute infection vs. gallstones f/u hepatitis panel f/u A1c #HTN - Increased both home HCTZ to 25mg and lisinopril to 20 mg to better control BP #PPX - DVT: lovenox #FEN - replete lyes PRN - sodium controlled diet - no standing fluids #Dispo: continue monitoring on Med/Surg Visit type - Emergency Visit Emergency Visit: Yes ED Registration Date: 11/25/19 Care time: The patient presented to the Emergency Department on the above date and was hospitalized for further evaluation of their emergent condition. - New Patient This patient is new to me today: Yes Date on this admission: 11/26/19 - Critical Care Critical Care patient: No - Discharge Referral Referred to [facility] Med [facility] No ATTENDING PHYSICIAN STATEMENT I saw and evaluated the patient. I reviewed the resident's note and discussed the case with the resident. I agree with the resident's findings and plan as documented. SUBJECTIVE: OBJECTIVE: ASSESSMENT AND PLAN:
[2019-11-26] MEDS ORDERED: ACETAMINOPHEN 1000 MG/100 ML VIAL (NON FORMULARY) IVPB ONE (16:14)
[2019-11-26] MEDS: BUDESONIDE/FORMETEROL FUMARATE 160/4.5 mcg INHALER IH SCH ×2 (16:36→21:33)
[2019-11-26] MEDS ORDERED: cefTRIAXone SODIUM 1 GM VIAL ONE (17:01)
[2019-11-26] MEDS ORDERED: LISINOPRIL 10 MG TABLET (FP) PO ONE (18:00)
[2019-11-26] MEDS: CEFTRIAXONE 1 GM in DEXTROSE 5%-WATER - 50 ML IVPB SCH (18:07)
[2019-11-26] MEDS: AZITHROMYCIN IVPB 500 MG/250 ML BAG IVPB SCH (18:20)
[2019-11-27] MEDS ORDERED: ACETAMINOPHEN 1000 MG/100 ML VIAL (NON FORMULARY) IVPB ONE (03:56)
[2019-11-27] MEDS ORDERED: IBUPROFEN 400 MG TABLET (FP) PO ONE (03:57)
[2019-11-27 08:57] LABS: BASO % 0.2 % (0-2.0); EOS % 0.1 % (0-4.5); HEMATOCRIT 41.6 % (35.4-49); HEMOGLOBIN 14.2 GM/dL (11.7-16.9); MCH 29.7 pg (25.7-33.7); MCHC 34.1 g/dl (32.0-35.9); MEAN CELL VOLUME 87.2 fl (80-96); MEAN PLT VOLUME 9.7 fl (7.5-11.1); MONO % 10.6 % (3.8-10.2); NEUT % 70.1 % (42.8-82.8); PLATELET COUNT 248 K/MM3 (134-434); RBC 4.78 M/mm3 (4.00-5.60); RDW 14.5 % (11.9-15.9); WHITE BLOOD COUNT 10.6 K/mm3 (4.0-10.0)
[2019-11-27 09:32] LABS: ALBUMIN 2.9 g/dl (3.4-5.0); BILIRUBIN,TOTAL 0.5 mg/dL (0.2-1); BLOOD UREA NITROGEN 10.5 mg/dL (7-18); CALCIUM 8.7 mg/dL (8.5-10.1); CREATININE 0.9 mg/dL (0.55-1.3); MAGNESIUM 1.8 mg/dL (1.8-2.4); POTASSIUM 3.1 mmol/L (3.5-5.1); TOT PROT 6.8 g/dl (6.4-8.2)
[2019-11-27] MEDS ORDERED: cefTRIAXone SODIUM 1 GM VIAL ONE (09:32)
[2019-11-27] MEDS ORDERED: DEXTROSE 5%-WATER - 50 ML IVPB ONE (09:33)
[2019-11-27] MEDS: HYDROCHLOROTHIAZIDE 25 MG TABLET (FP) PO SCH (09:38)
[2019-11-27] MEDS: CEFTRIAXONE 1 GM in DEXTROSE 5%-WATER - 50 ML IVPB SCH (09:38)
[2019-11-27] MEDS: LISINOPRIL 20 MG TABLET (FP) PO SCH (09:38)
[2019-11-27] MEDS: AZITHROMYCIN IVPB 500 MG/250 ML BAG IVPB SCH (09:38)
[2019-11-27] MEDS: ENOXAPARIN NA (PORCINE) 40 MG/0.4 ML DISP.SYRIN SQ SCH (09:38)
[2019-11-27] MEDS: BUDESONIDE/FORMETEROL FUMARATE 160/4.5 mcg INHALER IH SCH ×2 (09:39→21:03)
--- NOTE | 2019-11-27 10:58 | PN ---
Progress Note, Physician History of Present Illness: PULMONARY ALERT,FEELING BETTER,LESS DYSPNEIC,LESS COUGH,LOW GRADE TEMP - Current Medication List Current Medications: Active Medications Budesonide/Formoterol Fumarate (Symbicort 160/4.5mcg -) 2 puff IH BID [facility] Last Admin: 11/27/19 09:39 Dose: 2 puff Documented by: Enoxaparin Sodium (Lovenox -) 40 mg SQ DAILY [facility] Last Admin: 11/27/19 09:38 Dose: 40 mg Documented by: Hydrochlorothiazide (Hctz -) 25 mg PO DAILY [facility] Last Admin: 11/27/19 09:38 Dose: 25 mg Documented by: Azithromycin (Zithromax 500mg Ivpb (Pre-Docked)) 500 mg in 250 mls @ 250 mls/hr IVPB DAILY [facility] Last Admin: 11/27/19 09:38 Dose: 250 mls/hr Documented by: Ceftriaxone Sodium 1 gm/ (Dextrose) 50 mls @ 200 mls/hr IVPB DAILY [facility]; Protocol Last Admin: 11/27/19 09:38 Dose: 200 mls/hr Documented by: Lisinopril (Prinivil) 20 mg PO DAILY [facility] Last Admin: 11/27/19 09:38 Dose: 20 mg Documented by: - Objective Vital Signs: Vital Signs Temperature 99.8 F H 11/27/19 05:00 Pulse Rate 66 11/27/19 05:00 Respiratory Rate 16 11/27/19 05:00 Blood Pressure 154/95 11/27/19 05:00 O2 Sat by Pulse Oximetry (%) 96 11/27/19 05:00 Constitutional: Yes: Well Nourished, Calm Eyes: Yes: WNL HENT: Yes: WNL Neck: Yes: WNL Cardiovascular: Yes: Regular Rate and Rhythm, S1, S2 Respiratory: Yes: Rales (CRACKLES R BASE) Gastrointestinal: Yes: Normal Bowel Sounds, Soft Extremities: Yes: WNL Edema: No Labs: CBC, BMP 11/27/19 07:40 11/27/19 07:40 INR, PTT INR 1.43 (0.83-1.09) H 11/25/19 17:30 Fibrinogen > 500.0 mg/dL (238-498) H 11/26/19 09:05 Laboratory Tests 11/27/19 07:40 Ferritin 1043.8 H LD Total 230 C-Reactive Protein 11.5 H Problem List - Problems (1) Fever Code(s): R50.9 - FEVER, UNSPECIFIED (2) PNA (pneumonia) Code(s): J18.9 - PNEUMONIA, UNSPECIFIED ORGANISM Qualifiers: Pneumonia type: due to unspecified organism Laterality: right Lung location: lower lobe of lung Qualified Code(s): J18.9 - Pneumonia, unspecified organism (3) Suspected COVID-19 virus infection Code(s): Z20.828 - CONTACT W AND EXPOSURE TO OTH VIRAL COMMUNICABLE DISEASES (4) HTN (hypertension) Code(s): I10 - ESSENTIAL (PRIMARY) HYPERTENSION (5) Tobacco abuse Code(s): Z72.0 - TOBACCO USE (6) Tobacco abuse counseling Code(s): Z71.6 - TOBACCO ABUSE COUNSELING Assessment/Plan IMP FEVER/CHILLS COVID-19 NEGATIVE RLL PNEUMONIA CAP HTN TOBACCO ABUSE ELEVATED LFTS PLAN O2 INHALED BRONCHODILATORS ABX PER ID TREND LFTS MONITOR INFLAMMATORY MARKERS COVID PCR NEGATIVE LEGIONELLA URINARY ANTIGEN NEGATIVE SYMBICORT 160/4.[address] ALEJANDRO Problem List - Problems (1) Fever Code(s): R50.9 - FEVER, UNSPECIFIED (2) PNA (pneumonia) Code(s): J18.9 - PNEUMONIA, UNSPECIFIED ORGANISM Qualifiers: Pneumonia type: due to unspecified organism Laterality: right Lung location: lower lobe of lung Qualified Code(s): J18.9 - Pneumonia, unspecified organism (3) Suspected COVID-19 virus infection Code(s): Z20.828 - CONTACT W AND EXPOSURE TO OTH VIRAL COMMUNICABLE DISEASES (4) HTN (hypertension) Code(s): I10 - ESSENTIAL (PRIMARY) HYPERTENSION (5) Tobacco abuse Code(s): Z72.0 - TOBACCO USE (6) Tobacco abuse counseling Code(s): Z71.6 - TOBACCO ABUSE COUNSELING
--- NOTE | 2019-11-27 12:38 | PN ---
Progress Note, Physician History of Present Illness: feels warm spiked fevers - Current Medication List Current Medications: Active Medications Budesonide/Formoterol Fumarate (Symbicort 160/4.5mcg -) 2 puff IH BID [facility] Last Admin: 11/27/19 09:39 Dose: 2 puff Documented by: Enoxaparin Sodium (Lovenox -) 40 mg SQ DAILY [facility] Last Admin: 11/27/19 09:38 Dose: 40 mg Documented by: Hydrochlorothiazide (Hctz -) 25 mg PO DAILY [facility] Last Admin: 11/27/19 09:38 Dose: 25 mg Documented by: Azithromycin (Zithromax 500mg Ivpb (Pre-Docked)) 500 mg in 250 mls @ 250 mls/hr IVPB DAILY [facility] Last Admin: 11/27/19 09:38 Dose: 250 mls/hr Documented by: Ceftriaxone Sodium 1 gm/ (Dextrose) 50 mls @ 200 mls/hr IVPB DAILY [facility]; Protocol Last Admin: 11/27/19 09:38 Dose: 200 mls/hr Documented by: Lisinopril (Prinivil) 20 mg PO DAILY [facility] Last Admin: 11/27/19 09:38 Dose: 20 mg Documented by: - Objective Vital Signs: Vital Signs Temperature 99.5 F 11/27/19 10:00 Pulse Rate 58 L 11/27/19 11:26 Respiratory Rate 18 11/27/19 10:00 Blood Pressure 148/83 11/27/19 10:00 O2 Sat by Pulse Oximetry (%) 96 11/27/19 11:26 Constitutional: Yes: No Distress, Calm Cardiovascular: Yes: S1, S2 Respiratory: Yes: Regular, Rhonchi Gastrointestinal: Yes: Normal Bowel Sounds, Soft Musculoskeletal: Yes: WNL Extremities: Yes: WNL Neurological: Yes: Alert, Oriented Psychiatric: Yes: Alert, Oriented Labs: CBC, BMP 11/27/19 07:40 11/27/19 07:40 INR, PTT INR 1.43 (0.83-1.09) H 11/25/19 17:30 Fibrinogen > 500.0 mg/dL (238-498) H 11/26/19 09:05 Assessment/Plan Problem List - Problems (1) Fever Code(s): R50.9 - FEVER, UNSPECIFIED (2) PNA (pneumonia) Code(s): J18.9 - PNEUMONIA, UNSPECIFIED ORGANISM Qualifiers: Pneumonia type: due to unspecified organism Laterality: right Lung location: lower lobe of lung Qualified Code(s): J18.9 - Pneumonia, unspecified organism (3) Suspected COVID-19 virus infection Code(s): Z20.828 - CONTACT W AND EXPOSURE TO OTH VIRAL COMMUNICABLE DISEASES (4) HTN (hypertension) Code(s): I10 - ESSENTIAL (PRIMARY) HYPERTENSION (5) Tobacco abuse Code(s): Z72.0 - TOBACCO USE (6) Tobacco abuse counseling Code(s): Z71.6 - TOBACCO ABUSE COUNSELING plan continue abx monitor fever rest as per the team
[2019-11-27] MEDS: ACETAMINOPHEN 325 MG TABLET (FP) PO PRN ×2 (14:24→20:44)
[2019-11-27] MEDS: amLODIPine BESYLATE 5 MG TABLET (FP) PO SCH (14:31)
[2019-11-27] MEDS ORDERED: POTASSIUM CHLORIDE TABS 20 MEQ TABLET.ER (FP) PO ONE (14:32)
--- NOTE | 2019-11-27 14:38 | PN ---
Physical Exam: SUBJECTIVE: Patient seen and examined. Pt. endorses diaphoresis overnight. 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 Pt. give low dose Ibuprofen and Pt. given breakfast which relieved symptoms. Pt. states he feels good and denies problem with breathing. Pt. noted to be hypertensive throughout night and morning. OBJECTIVE: Vital Signs Period Temp Pulse Resp BP Sys/Massey Pulse Ox Last 24 Hr 99.5 F-101.3 F 58-89 14-18 136-162/81-99 94-99 GENERAL: The patient is awake, alert, and fully oriented, in no acute distress. HEAD: Normal with no signs of trauma. EYES: Sclera anicteric, conjunctiva clear. ENT: moist mucous membranes. NECK: Trachea midline, full range of motion, supple. LUNGS: Breath sounds equal, clear to auscultation bilaterally, no wheezes, no crackles, no accessory muscle use. HEART: Regular rate and rhythm, S1, S2 without murmur ABDOMEN: Soft, nontender, nondistended, normoactive bowel sounds, no guarding, no rebound EXTREMITIES: 2+ dorsal pedal pulses, warm, well-perfused, no edema. NEUROLOGICAL: Moves all extremities, Normal speech, gait not observed. PSYCH: Normal mood, normal affect. SKIN: Warm, dry, normal turgor Laboratory Results - last 24 hr 11/27/19 11/27/19 11/27/19 07:40 07:40 07:40 WBC 10.6 H RBC 4.78 Hgb 14.2 Hct 41.6 MCV 87.2 MCH 29.7 MCHC 34.1 RDW 14.5 Plt Count 248 MPV 9.7 Absolute Neuts (auto) 7.4 Neutrophils % 70.1 D Lymphocytes % 19.0 D Monocytes % 10.6 H D Eosinophils % 0.1 Basophils % 0.2 Nucleated RBC % 0 Sodium 134 L Potassium 3.1 L Chloride 96 L Carbon Dioxide 25 Anion Gap 13 BUN 10.5 Creatinine 0.9 Est GFR (CKD-EPI)AfAm 111.05 Est GFR (CKD-EPI)NonAf 95.81 Random Glucose 89 Hemoglobin A1c % 5.4 Calcium 8.7 Magnesium 1.8 Ferritin 1043.8 H Total Bilirubin 0.5 AST 61 H ALT 95 H Alkaline Phosphatase 87 LD Total 230 C-Reactive Protein 11.5 H Total Protein 6.8 Albumin 2.9 L Active Medications Generic Name Dose Route Start Last Admin Trade Name Johnnyq PRN Reason Stop Dose Admin Acetaminophen 650 mg 11/27/19 14:02 11/27/19 14:24 Tylenol - PO 650 mg Q6H PRN Administration FEVER Amlodipine Besylate 5 mg 11/27/19 14:30 11/27/19 14:31 Norvasc - PO 5 mg DAILY TIMA Administration Budesonide/Formoterol Fumarate 2 puff 11/26/19 13:15 11/27/19 09:39 Symbicort 160/4.5mcg - IH 2 puff BID TIMA Administration Enoxaparin Sodium 40 mg 11/25/19 22:00 11/27/19 09:38 Lovenox - SQ 40 mg DAILY TIM[facility] Administration Hydrochlorothiazide 25 mg 11/26/19 11:30 11/27/19 09:38 Hctz - PO 25 mg DAILY [facility] Administration Azithromycin 500 mg in 250 mls @ 250 mls/hr 11/26/19 19:00 11/27/19 09:38 Zithromax 500mg Ivpb (Pre-Docked) IVPB 250 mls/hr DAILY [facility] Administration Ceftriaxone Sodium 1 gm/ 50 mls @ 200 mls/hr 11/26/19 19:00 11/27/19 09:38 Dextrose IVPB 200 mls/hr DAILY [facility] Administration Protocol Lisinopril 20 mg 11/26/19 11:19 11/27/19 09:38 Prinivil PO 20 mg DAILY [facility] Administration ASSESSMENT/PLAN: Pt. is a 54 y.o. M w/ PMHx. of HTN and longstanding tobacco use who presents with 2 days of fevers, chills, diaphoresis, weakness and body aches, and diarrhea and is admitted for treatment of COVID vs. PNA. #Suspected COVID- 19 infection vs. Community Acquired PNA - Pt. continues to saturate >95%, breathing comfortably on RA - Tmax today was 101.3 - WBC 13.4--> 15.3-->14.2 - ferritin 426.9--> 1043, LD 314-->255, CK 442, CRP 15.4-->11.5; will continue to trend. - CXR: medial right base atelectasis or infiltrate; CT Chest consistent with R. lower lobe PNA and moderate hepatomegaly. MUST HAVE F/U CT after PNA treatment, may be bronchoalveolar carcinoma as they are also posterior basilar medial consolidation. Pt. is active smoker. - ID consult appreciated - pulm consult appreciated---> started on Symbicort - ceftriaxone + azithromycin for empiric coverage (Day 2) - COVID-19 PCR negative, f/u Rpt. and antibodies - f/u blood Cultures #Transaminitis -LFTs now slightly down trending -CT chest showed moderate hepatomegaly -Liver dysfunction likely associated w/ chronic MJ use, EtOH? vs. acute infection vs. gallstones -f/u hepatitis panel -A1c: 5.4% #HTN - Increased both home HCTZ to 25mg and lisinopril to 20 mg to better control BP - BP still elevated to 150s, will add on Norvasc 5mg - Pt. will need outpatient renal artery ultrasound #PPX - DVT: lovenox #FEN - replete lyes PRN - sodium controlled diet - no standing fluids #Dispo: continue monitoring on Med/Surg ATTENDING PHYSICIAN STATEMENT I saw and evaluated the patient. I reviewed the resident's note and discussed the case with the resident. I agree with the resident's findings and plan as documented. SUBJECTIVE: OBJECTIVE: ASSESSMENT AND PLAN:
--- NOTE | 2019-11-27 17:48 | PN ---
Teaching Attending Note Name of Resident: Jose Zavala ATTENDING PHYSICIAN STATEMENT I saw and evaluated the patient. I reviewed the resident's note and discussed the case with the resident. I agree with the resident's findings and plan as documented. SUBJECTIVE: Patient seen and examined at bedside, admitted for PNA/COVId rule out, COVID neg. x1, will re-swab due to persistent fevers/sweating, and cont. abx for CAP. VSS. OBJECTIVE: GENERAL: The patient is awake, alert, and fully oriented, in no acute distress. HEAD: Normal with no signs of trauma. EYES: Sclera anicteric, conjunctiva clear. ENT: moist mucous membranes. NECK: Trachea midline, full range of motion, supple. LUNGS: Breath sounds equal, clear to auscultation bilaterally, no wheezes, no crackles, no accessory muscle use. HEART: Regular rate and rhythm, S1, S2 without murmur ABDOMEN: Soft, nontender, nondistended, normoactive bowel sounds, no guarding, no rebound EXTREMITIES: 2+ dorsal pedal pulses, warm, well-perfused, no edema. NEUROLOGICAL: Moves all extremities, Normal speech, gait not observed. PSYCH: Normal mood, normal affect. SKIN: Warm, dry, normal turgor Vital Signs - 24 hr 11/26/19 11/26/19 11/26/19 18:00 21:00 22:00 Temperature 101.3 F H 99.5 F Pulse Rate 89 60 Respiratory 18 18 18 Rate Blood Pressure 162/90 136/91 O2 Sat by Pulse 96 98 98 Oximetry (%) 11/27/19 11/27/19 11/27/19 02:00 05:00 10:00 Temperature 99.5 F 99.8 F H 99.5 F Pulse Rate 58 L 66 58 L Respiratory 14 16 18 Rate Blood Pressure 150/81 154/95 148/83 O2 Sat by Pulse 95 96 99 Oximetry (%) 11/27/19 11/27/19 11/27/19 11:26 14:33 16:00 Temperature 100.4 F H 99.0 F Pulse Rate 58 L 73 58 L Respiratory 16 18 Rate Blood Pressure 158/99 148/94 O2 Sat by Pulse 96 94 L 96 Oximetry (%) Microbiology 11/26/19 16:32 Urine For Antigen Detection Legionella Antigen - Final 11/26/19 16:32 Urine For Antigen Detection Streptococcus pneumoniae Antigen (M - Final 11/26/19 14:30 Stool Clostridioides difficile Antigen - Final 11/26/19 14:30 Stool Clostridioides difficile Toxin Assay - Final Laboratory Results - last 24 hr 11/27/19 11/27/19 11/27/19 07:40 07:40 07:40 WBC 10.6 H RBC 4.78 Hgb 14.2 Hct 41.6 MCV 87.2 MCH 29.7 MCHC 34.1 RDW 14.5 Plt Count 248 MPV 9.7 Absolute Neuts (auto) 7.4 Neutrophils % 70.1 D Lymphocytes % 19.0 D Monocytes % 10.6 H D Eosinophils % 0.1 Basophils % 0.2 Nucleated RBC % 0 Sodium 134 L Potassium 3.1 L Chloride 96 L Carbon Dioxide 25 Anion Gap 13 BUN 10.5 Creatinine 0.9 Est GFR (CKD-EPI)AfAm 111.05 Est GFR (CKD-EPI)NonAf 95.81 Random Glucose 89 Hemoglobin A1c % 5.4 Calcium 8.7 Magnesium 1.8 Ferritin 1043.8 H Total Bilirubin 0.5 AST 61 H ALT 95 H Alkaline Phosphatase 87 LD Total 230 C-Reactive Protein 11.5 H Total Protein 6.8 Albumin 2.9 L Home Medications Medication Instructions Recorded Hydrochlorothiazide 25 mg PO DAILY 11/25/19 Lisinopril 10 mg PO DAILY 11/25/19 Current Medications Generic Name Dose Route Start Last Admin Trade Name Freq PRN Reason Stop Dose Admin Acetaminophen 650 mg 11/27/19 14:02 11/27/19 14:24 Tylenol - PO 650 mg Q6H PRN Administration FEVER Amlodipine Besylate 5 mg 11/27/19 14:30 11/27/19 14:31 Norvasc - PO 5 mg DAILY TIMA Administration Budesonide/Formoterol Fumarate 2 puff 11/26/19 13:15 11/27/19 09:39 Symbicort 160/4.5mcg - IH 2 puff BID TIMA Administration Enoxaparin Sodium 40 mg 11/25/19 22:00 11/27/19 09:38 Lovenox - SQ 40 mg DAILY TIMA Administration Hydrochlorothiazide 25 mg 11/26/19 11:30 11/27/19 09:38 Hctz - PO 25 mg DAILY TIMA Administration Azithromycin 500 mg in 250 mls @ 250 mls/hr 11/26/19 19:00 11/27/19 09:38 Zithromax 500mg Ivpb (Pre-Docked) IVPB 250 mls/hr DAILY TIMA Administration Ceftriaxone Sodium 1 gm/ 50 mls @ 200 mls/hr 11/26/19 19:00 11/27/19 09:38 Dextrose IVPB 200 mls/hr DAILY TIMA Administration Protocol Lisinopril 20 mg 11/26/19 11:19 11/27/19 09:38 Prinivil PO 20 mg DAILY TIMA Administration ASSESSMENT AND PLAN: 54 M PNA v.s. COVID HTN HLD Active smoker COPD/asthma Plan: Cont. Ceftriaxone/Axithromycin for CAP, re-swab for COVID with good sample Send legionella/strep/RSV/FLU COnt. BP meds Incentive spirometry Smoking cessation DVt ppx: Lovenox SC
[2019-11-28 08:46] LABS: BASO % 0.4 % (0-2.0); EOS % 0.3 % (0-4.5); HEMATOCRIT 44.3 % (35.4-49); HEMOGLOBIN 14.7 GM/dL (11.7-16.9); LYMPH % 24.8 % (8-40); MCH 28.8 pg (25.7-33.7); MCHC 33.3 g/dl (32.0-35.9); MEAN CELL VOLUME 86.6 fl (80-96); MEAN PLT VOLUME 9.1 fl (7.5-11.1); MONO % 11.8 % (3.8-10.2); NEUT % 62.7 % (42.8-82.8); PLATELET COUNT 297 K/MM3 (134-434); RBC 5.11 M/mm3 (4.00-5.60); RDW 14.4 % (11.9-15.9); WHITE BLOOD COUNT 7.9 K/mm3 (4.0-10.0)
[2019-11-28 09:12] LABS: ALBUMIN 3.1 g/dl (3.4-5.0); BILIRUBIN,TOTAL 0.5 mg/dL (0.2-1); BLOOD UREA NITROGEN 9.6 mg/dL (7-18); MAGNESIUM 2.3 mg/dL (1.8-2.4); POTASSIUM 3.1 mmol/L (3.5-5.1); TOT PROT 7.6 g/dl (6.4-8.2)
[2019-11-28] MEDS ORDERED: cefTRIAXone SODIUM 1 GM VIAL ONE (09:42)
[2019-11-28] MEDS ORDERED: DEXTROSE 5%-WATER - 50 ML IVPB ONE (09:42)
--- NOTE | 2019-11-28 09:47 | PN ---
Progress Note, Physician History of Present Illness: stable no new issues wbc has normalized had a low grade fever - Current Medication List Current Medications: Active Medications Acetaminophen (Tylenol -) 650 mg PO Q6H PRN PRN Reason: FEVER Last Admin: 11/27/19 20:44 Dose: 650 mg Documented by: Amlodipine Besylate (Norvasc -) 5 mg PO DAILY [facility] Last Admin: 11/27/19 14:31 Dose: 5 mg Documented by: Budesonide/Formoterol Fumarate (Symbicort 160/4.5mcg -) 2 puff IH BID [facility] Last Admin: 11/27/19 21:03 Dose: 2 puff Documented by: Enoxaparin Sodium (Lovenox -) 40 mg SQ DAILY [facility] Last Admin: 11/27/19 09:38 Dose: 40 mg Documented by: Hydrochlorothiazide (Hctz -) 25 mg PO DAILY [facility] Last Admin: 11/27/19 09:38 Dose: 25 mg Documented by: Azithromycin (Zithromax 500mg Ivpb (Pre-Docked)) 500 mg in 250 mls @ 250 mls/hr IVPB DAILY [facility] Last Admin: 11/27/19 09:38 Dose: 250 mls/hr Documented by: Ceftriaxone Sodium 1 gm/ (Dextrose) 50 mls @ 200 mls/hr IVPB DAILY [facility]; Protocol Last Admin: 11/27/19 09:38 Dose: 200 mls/hr Documented by: Lisinopril (Prinivil) 20 mg PO DAILY [facility] Last Admin: 11/27/19 09:38 Dose: 20 mg Documented by: - Objective Vital Signs: Vital Signs Temperature 98.5 F 11/28/19 05:02 Pulse Rate 58 L 11/28/19 05:02 Respiratory Rate 20 11/28/19 05:02 Blood Pressure 160/96 11/28/19 05:02 O2 Sat by Pulse Oximetry (%) 96 11/28/19 05:02 Constitutional: Yes: No Distress, Calm Cardiovascular: Yes: S1, S2 Respiratory: Yes: Regular, CTA Bilaterally Gastrointestinal: Yes: Normal Bowel Sounds, Soft Musculoskeletal: Yes: WNL Extremities: Yes: WNL Neurological: Yes: Alert, Oriented Psychiatric: Yes: Alert, Oriented Labs: CBC, BMP 11/28/19 08:18 11/28/19 08:18 INR, PTT INR 1.43 (0.83-1.09) H 11/25/19 17:30 Fibrinogen > 500.0 mg/dL (238-498) H 11/26/19 09:05 Assessment/Plan Problem List - Problems (1) Fever Code(s): R50.9 - FEVER, UNSPECIFIED (2) PNA (pneumonia) Code(s): J18.9 - PNEUMONIA, UNSPECIFIED ORGANISM Qualifiers: Pneumonia type: due to unspecified organism Laterality: right Lung location: lower lobe of lung Qualified Code(s): J18.9 - Pneumonia, unspecified organism (3) Suspected COVID-19 virus infection Code(s): Z20.828 - CONTACT W AND EXPOSURE TO OTH VIRAL COMMUNICABLE DISEASES (4) HTN (hypertension) Code(s): I10 - ESSENTIAL (PRIMARY) HYPERTENSION (5) Tobacco abuse Code(s): Z72.0 - TOBACCO USE (6) Tobacco abuse counseling Code(s): Z71.6 - TOBACCO ABUSE COUNSELING plan continue abx monitor fever rest as per the team
[2019-11-28] MEDS: ENOXAPARIN NA (PORCINE) 40 MG/0.4 ML DISP.SYRIN SQ SCH (09:49)
[2019-11-28] MEDS: CEFTRIAXONE 1 GM in DEXTROSE 5%-WATER - 50 ML IVPB SCH (09:49)
[2019-11-28] MEDS: amLODIPine BESYLATE 5 MG TABLET (FP) PO SCH (09:49)
[2019-11-28] MEDS: AZITHROMYCIN IVPB 500 MG/250 ML BAG IVPB SCH (09:49)
[2019-11-28] MEDS: LISINOPRIL 20 MG TABLET (FP) PO SCH ×2 (09:49→11:09)
[2019-11-28] MEDS: HYDROCHLOROTHIAZIDE 25 MG TABLET (FP) PO SCH (09:49)
[2019-11-28] MEDS: BUDESONIDE/FORMETEROL FUMARATE 160/4.5 mcg INHALER IH SCH ×2 (09:50→21:21)
[2019-11-28] MEDS ORDERED: POTASSIUM CHLORIDE TABS 20 MEQ TABLET.ER (FP) PO ONE ×2 (09:53→14:15)
[2019-11-28] MEDS: amLODIPine BESYLATE 10 MG TABLET (FP) PO SCH (11:09)
--- NOTE | 2019-11-28 12:29 | PN ---
Progress Note (short form) - Note Progress Note: PULMONARY VSS/AFEBRILE MUCH IMPROVED Constitutional: Yes: Well Nourished, Calm Eyes: Yes: WNL HENT: Yes: WNL Neck: Yes: WNL Cardiovascular: Yes: Regular Rate and Rhythm, S1, S2 Respiratory: Yes: Rales (CRACKLES R BASE) Gastrointestinal: Yes: Normal Bowel Sounds, Soft Extremities: Yes: WNL Edema: No Labs: noted Images reviewed IMP COVID-19 NEGATIVE X1 RLL PNEUMONIA CAP HTN TOBACCO ABUSE ELEVATED LFTS PLAN O2 INHALED BRONCHODILATORS ABX PER ID TREND LFTS/ULTRASOUND PENDING COVID PCR NEGATIVE LEGIONELLA URINARY ANTIGEN NEGATIVE SYMBICORT 160/4.5 DVT PROPHYLAXIS Nathalie KAISER MD
[2019-11-28] MEDS ORDERED: amLODIPine BESYLATE 5 MG TABLET (FP) PO ONE (13:12)
--- NOTE | 2019-11-28 17:46 | PN ---
Physical Exam: SUBJECTIVE: Patient seen and examined at bedside, COVID neg/also antibodies neg., being treated for CAP. Fevers improved. US showing fatty liver. May DC in AM if feeling better. VSS. OBJECTIVE: GENERAL: The patient is awake, alert, and fully oriented, in no acute distress. HEAD: Normal with no signs of trauma. EYES: Sclera anicteric, conjunctiva clear. ENT: moist mucous membranes. NECK: Trachea midline, full range of motion, supple. LUNGS: Breath sounds equal, clear to auscultation bilaterally, no wheezes, no crackles, no accessory muscle use. HEART: Regular rate and rhythm, S1, S2 without murmur ABDOMEN: Soft, nontender, nondistended, normoactive bowel sounds, no guarding, no rebound EXTREMITIES: 2+ dorsal pedal pulses, warm, well-perfused, no edema. NEUROLOGICAL: Moves all extremities, Normal speech, gait not observed. PSYCH: Normal mood, normal affect. SKIN: Warm, dry, normal turgor Vital Signs - 24 hr Laboratory Results - last 24 hr 11/27/19 11/27/19 11/28/19 07:40 17:45 08:18 WBC 7.9 RBC 5.11 Hgb 14.7 Hct 44.3 MCV 86.6 MCH 28.8 MCHC 33.3 RDW 14.4 Plt Count 297 MPV 9.1 Absolute Neuts (auto) 4.9 Neutrophils % 62.7 Lymphocytes % 24.8 D Monocytes % 11.8 H Eosinophils % 0.3 D Basophils % 0.4 Nucleated RBC % 0 Sodium Potassium Chloride Carbon Dioxide Anion Gap BUN Creatinine Est GFR (CKD-EPI)AfAm Est GFR (CKD-EPI)NonAf Random Glucose Calcium Magnesium Total Bilirubin AST ALT Alkaline Phosphatase Total Protein Albumin Hep A IgM Ab Confirm Negative Hep Bs Antigen Negative Hep B Core IgM Ab Negative Hepatitis C Ab (EIA) <0.1 SARS-CoV-2 Ab Interp Non-reactive 11/28/19 08:18 WBC RBC Hgb Hct MCV MCH MCHC RDW Plt Count MPV Absolute Neuts (auto) Neutrophils % Lymphocytes % Monocytes % Eosinophils % Basophils % Nucleated RBC % Sodium 135 L Potassium 3.1 L Chloride 97 L Carbon Dioxide 29 Anion Gap 10 BUN 9.6 Creatinine 1.0 Est GFR (CKD-EPI)AfAm 97.77 Est GFR (CKD-EPI)NonAf 84.35 Random Glucose 110 H Calcium 9.0 Magnesium 2.3 Total Bilirubin 0.5 AST 65 H ALT 103 H Alkaline Phosphatase 113 Total Protein 7.6 Albumin 3.1 L Hep A IgM Ab Confirm Hep Bs Antigen Hep B Core IgM Ab Hepatitis C Ab (EIA) SARS-CoV-2 Ab Interp Active Medications Generic Name Dose Route Start Last Admin Trade Name Freq PRN Reason Stop Dose Admin Acetaminophen 650 mg 11/27/19 14:02 11/27/19 20:44 Tylenol - PO 650 mg Q6H PRN Administration FEVER Amlodipine Besylate 10 mg 11/28/19 09:55 11/28/19 11:09 Norvasc - PO Not Given DAILY TIMA Budesonide/Formoterol Fumarate 2 puff 11/26/19 13:15 11/28/19 09:50 Symbicort 160/4.5mcg - IH 2 puff BID TIMA Administration Enoxaparin Sodium 40 mg 11/25/19 22:00 11/28/19 09:49 Lovenox - SQ 40 mg DAILY TIMA Administration Azithromycin 500 mg in 250 mls @ 250 mls/hr 11/26/19 19:00 11/28/19 09:49 Zithromax 500mg Ivpb (Pre-Docked) IVPB 250 mls/hr DAILY [facility] Administration Ceftriaxone Sodium 1 gm/ 50 mls @ 200 mls/hr 11/26/19 19:00 11/28/19 09:49 Dextrose IVPB 200 mls/hr DAILY TIMA Administration Protocol Lisinopril 40 mg 11/28/19 09:56 11/28/19 11:09 Prinivil PO Not Given DAILY TIMA ASSESSMENT/PLAN: 54 M CAP PNA COVID neg. HTN HLD Active smoker COPD/asthma Fatty liver Plan: Cont. Ceftriaxone/Axithromycin for CAP, re-swab for COVID pending (unlikely COVID) cultures neg. so far COnt. BP meds Incentive spirometry Smoking cessation DVt ppx: Lovenox SC DC in AM if feeling better Visit type - Emergency Visit Emergency Visit: Yes ED Registration Date: 11/25/19 Care time: The patient presented to the Emergency Department on the above date and was hospitalized for further evaluation of their emergent condition. - New Patient This patient is new to me today: No - Critical Care Critical Care patient: No - Discharge Referral Referred to [facility] Med P.C.: No
[2019-11-29 05:26] VITALS: BP 143/71; PULSE 52; TEMP 98.7
[2019-11-29] MEDS: ENOXAPARIN NA (PORCINE) 40 MG/0.4 ML DISP.SYRIN SQ SCH (09:10)
[2019-11-29] MEDS: LISINOPRIL 20 MG TABLET (FP) PO SCH (09:11)
[2019-11-29] MEDS: amLODIPine BESYLATE 10 MG TABLET (FP) PO SCH (09:11)
[2019-11-29 09:17] LABS: BASO % 0.8 % (0-2.0); EOS % 1.2 % (0-4.5); HEMATOCRIT 46.6 % (35.4-49); HEMOGLOBIN 15.6 GM/dL (11.7-16.9); LYMPH % 31.1 % (8-40); MCH 29.4 pg (25.7-33.7); MCHC 33.5 g/dl (32.0-35.9); MEAN PLT VOLUME 9.5 fl (7.5-11.1); NEUT % 56.9 % (42.8-82.8); PLATELET COUNT 304 K/MM3 (134-434); WHITE BLOOD COUNT 6.6 K/mm3 (4.0-10.0)
[2019-11-29 09:50] LABS: BILIRUBIN,TOTAL 0.4 mg/dL (0.2-1); BLOOD UREA NITROGEN 10.8 mg/dL (7-18); CALCIUM 9.3 mg/dL (8.5-10.1); POTASSIUM 3.1 mmol/L (3.5-5.1); TOT PROT 7.5 g/dl (6.4-8.2)
[2019-11-29] MEDS: BUDESONIDE/FORMETEROL FUMARATE 160/4.5 mcg INHALER IH SCH (10:09)
[2019-11-29] MEDS ORDERED: cefTRIAXone SODIUM 1 GM VIAL ONE (11:44)
[2019-11-29] MEDS ORDERED: DEXTROSE 5%-WATER - 50 ML IVPB ONE (11:44)
[2019-11-29] MEDS: CEFTRIAXONE 1 GM in DEXTROSE 5%-WATER - 50 ML IVPB SCH (11:50)
[2019-11-29] MEDS: AZITHROMYCIN IVPB 500 MG/250 ML BAG IVPB SCH (11:50)
[2019-11-29] MEDS ORDERED: POTASSIUM CHLORIDE TABS 20 MEQ TABLET.ER (FP) PO ONE (12:40)
--- NOTE | 2019-11-29 12:43 | PN ---
Progress Note (short form) - Note Progress Note: PULMONARY Feels better, close to baseline. No shortness of breath, cough, fevers. Vital Signs Period Temp Pulse Resp BP Sys/Massey Pulse Ox Last 24 Hr 98.7 F-98.9 F 52-58 18-19 139-144/71-87 95-105 Gen: NAD at rest Heart: RRR Lung: decreased breath sounds at the bases Abd: soft, nontender Ext: no edema CBC, BMP 11/29/19 08:31 11/29/19 08:31 Active Medications Acetaminophen (Tylenol -) 650 mg PO Q6H PRN PRN Reason: FEVER Last Admin: 11/27/19 20:44 Dose: 650 mg Documented by: Amlodipine Besylate (Norvasc -) 10 mg PO DAILY [facility] Last Admin: 11/29/19 09:11 Dose: 10 mg Documented by: Budesonide/Formoterol Fumarate (Symbicort 160/4.5mcg -) 2 puff IH BID [facility] Last Admin: 11/29/19 10:09 Dose: 2 puff Documented by: Enoxaparin Sodium (Lovenox -) 40 mg SQ DAILY [facility] Last Admin: 11/29/19 09:10 Dose: 40 mg Documented by: Lisinopril (Prinivil) 40 mg PO DAILY [facility] Last Admin: 11/29/19 09:11 Dose: 40 mg Documented by: Potassium Chloride (K-Dur -) 40 meq PO ONCE ONE Stop: 11/29/19 12:41 A/P Pneumonia HTN Elevated LFTs Smoker - continue antibiotics - inhaled bronchodilators - smoking cessation - DVT prophylaxis
--- NOTE | 2019-11-29 13:41 | DS ---
Physical Exam: SUBJECTIVE: Patient seen and examined at bedside, feeling better, stable for DC home with PCP follow up and abx for a few more days. OBJECTIVE: Vital Signs Period Temp Pulse Resp BP Sys/Massey Pulse Ox Last 24 Hr 98.7 F-98.9 F 52-58 18-19 139-144/71-87 95-105 PHYSICAL EXAM GENERAL: The patient is awake, alert, and fully oriented, in no acute distress. HEAD: Normal with no signs of trauma. EYES: PERRL, extraocular movements intact, sclera anicteric, conjunctiva clear. ENT: Ears normal, nares patent, oropharynx clear without exudates, moist mucous membranes. NECK: Trachea midline, full range of motion, supple. LUNGS: Breath sounds equal, clear to auscultation bilaterally, no wheezes, no crackles, no accessory muscle use. HEART: Regular rate and rhythm, S1, S2 without murmur, rub or gallop. ABDOMEN: Soft, nontender, nondistended, normoactive bowel sounds, no guarding, no rebound, no hepatosplenomegaly, no masses. EXTREMITIES: 2+ pulses, warm, well-perfused, no edema. NEUROLOGICAL: Cranial nerves II through XII grossly intact. Normal speech, gait not observed. PSYCH: Normal mood, normal affect. SKIN: Warm, dry, normal turgor, no rashes or lesions noted. LABS Laboratory Results - last 24 hr 11/27/19 11/29/19 11/29/19 15:30 08:31 08:31 WBC 6.6 RBC 5.30 Hgb 15.6 Hct 46.6 MCV 88.0 MCH 29.4 MCHC 33.5 RDW 15.0 Plt Count 304 MPV 9.5 Absolute Neuts (auto) 3.8 Neutrophils % 56.9 Lymphocytes % 31.1 D Monocytes % 10.0 Eosinophils % 1.2 D Basophils % 0.8 Nucleated RBC % 0 Sodium 140 Potassium 3.1 L Chloride 102 Carbon Dioxide 29 Anion Gap 9 BUN 10.8 Creatinine 1.0 Est GFR (CKD-EPI)AfAm 97.77 Est GFR (CKD-EPI)NonAf 84.35 Random Glucose 140 H Calcium 9.3 Total Bilirubin 0.4 AST 47 H ALT 104 H Alkaline Phosphatase 119 H Total Protein 7.5 Albumin 3.0 L COVID-19 ([place]) Not detected HOSPITAL COURSE: 54 M h/o HTN, HLD, active smoker, presents with symptoms of SOB/cough w/ greenish sputum, DIA. Found to have RML/RLL PNA, was given 3-4 days of IV abx with improvement of symptoms. COVID neg. x2, antibodies to COVId also negative. Patient advised smoking cessation, given NRT, and follow up with PMD at [facility] on [address]. Pt. to finish abx with Augmentin 875mg BID x3 more days, along with Norvasc/Lisinopril for HTN and ASA 81mg added for secondary prevention. Date of Admission:11/25/19 Date of Discharge: 11/29/19 DC Meds: Home Medications Medication Instructions Recorded Amlodipine Besylate [Norvasc -] 10 mg PO DAILY #30 tablet 11/29/19 Amoxicillin/Potassium Clav 1 each PO BID #6 tablet 11/29/19 [Augmentin 875-125 Tablet] Aspirin [ASA -] 81 mg PO DAILY #30 tab.chew 11/29/19 Lisinopril [Prinivil] 20 mg PO DAILY #30 tablet 11/29/19 Nicotine Patch [Nicoderm Patch -] 1 patch TD DAILY #30 patch 11/29/19 Minutes to complete discharge: 45 Discharge Summary Problems reviewed: Yes Reason For Visit: FEVER/NAUSEA/DIARRHEA Current Active Problems Fever (Acute) HTN (hypertension) (Acute) PNA (pneumonia) (Acute) Suspected COVID-19 virus infection (Acute) Tobacco abuse (Acute) Tobacco abuse counseling (Acute) Condition: Improved - Instructions Diet, Activity, Other Instructions: You were admitted to the hospital for bacterial pneumonia. You were given antibiotics with improvement of your fevers and shortness of breath and cough. Your coronavirus test was negative (x2). You were advised to stop smoking and take your blood pressure medications as prescribed. You were started on new medicaitons for your blood pressure and you need to finish 3 more days of antibiotics. If you feel worsening of shortness of breath, chest pain, dizziness, diarrhea, headache, syncope, abdominal pain, fever, chills, go to ED immediately. Please follow up with your primary care doctor at [facility] on [address]. Discharge medications: Norvasc 10mg daily Lisinopril 20mg daily Aspirin 81mg daily Nicotine patches Augmentin 875mg twice a day (3 more days) Disposition: HOME - Home Medications Comprehensive Discharge Medication List: Ambulatory Orders Amlodipine Besylate [Norvasc -] 10 mg PO DAILY #30 tablet 11/29/19 Amoxicillin/Potassium Clav [Augmentin 875-125 Tablet] 1 each PO BID #6 tablet 11/29/19 Aspirin [ASA -] 81 mg PO DAILY #30 tab.chew 11/29/19 Lisinopril [Prinivil] 20 mg PO DAILY #30 tablet 11/29/19 Nicotine Patch [Nicoderm Patch -] 1 patch TD DAILY #30 patch 11/29/19 Problem List - Problems (1) PNA (pneumonia) Code(s): J18.9 - PNEUMONIA, UNSPECIFIED ORGANISM Qualifiers: Pneumonia type: due to unspecified organism Laterality: right Lung location: lower lobe of lung Qualified Code(s): J18.9 - Pneumonia, unspecified organism This patient is new to me today: No Emergency Visit: Yes ED Registration Date: 11/25/19 Care time: The patient presented to the Emergency Department on the above date and was hospitalized for further evaluation of their emergent condition. Critical Care patient: No - Discharge Referral Referred to [facility] Med P.C.: No
== END 2019-11-29 15:55 | disposition home or self-care (01) | DRG 139 ==
LOC: JER 16:44 → J6S 19:50
PROVIDERS: ADMIT Internal Medicine
DX: J18.9 Pneumonia, unspecified organism (principal); J44.9 Chronic obstructive pulmonary disease, unspecified; E87.1 Hypo-osmolality and hyponatremia; R16.0 Hepatomegaly, not elsewhere classified; R11.2 Nausea with vomiting, unspecified; F17.210 Nicotine dependence, cigarettes, uncomplicated; J98.11 Atelectasis; E86.0 Dehydration; I10 Essential (primary) hypertension; K76.0 Fatty (change of) liver, not elsewhere classified
CPT/HCPCS: 36415; 71045-TC-FY; 71250-TC; 76705-TC; 80053; 80074; 82248; 82550; 82553; 82728; 83036; 83615; 83690; 83735; 84100; 84484; 85025; 85379; 85384; 85610; 85651; 85730; 86140; 86769; 86850; 86900; 86901; 87040; 87070; 87205; 87324; 87449; 87899; 93005; 93010; 99285-25; J0131; J1100; U0003

== ENCOUNTER 2021-04-03 04:14 | Emergency (ER) | payer OTHER ==
[2021-04-03 04:52] VITALS: BMI 28.4
[2021-04-03] MEDS ORDERED: SODIUM CHLORIDE 0.9% 500 ML INFUS.BAG IV ONE (05:47)
[2021-04-03] MEDS ORDERED: METOCLOPRAMIDE HCL INJECTION 10 MG/2 ML VIAL IVPB ONE (05:47)
[2021-04-03] MEDS ORDERED: METOCLOPRAMIDE HCL INJECTION 10 MG/2 ML VIAL ONE (06:02)
[2021-04-03 06:22] LABS: BASO % 0.6 % (0-2.0); EOS % 0.3 % (0-4.5); HEMATOCRIT 43.9 % (35.4-49); HEMOGLOBIN 14.3 GM/dL (11.7-16.9); LYMPH % 2.7 % (8-40); MCH 28.3 pg (25.7-33.7); MCHC 32.6 g/dl (32.0-35.9); MEAN CELL VOLUME 86.8 fl (80-96); MEAN PLT VOLUME 8.5 fl (7.5-11.1); NEUT % 84.4 % (42.8-82.8); PLATELET COUNT 253 10^3/uL (134-434); RBC 5.05 M/mm3 (4.00-5.60); RDW 14.7 % (11.9-15.9); WHITE BLOOD COUNT 6.8 K/mm3 (4.0-10.0)
[2021-04-03 06:39] LABS: CHLORIDE 103 mmol/L (98-107); SODIUM 138 mmol/L (136-145)
[2021-04-03 06:41] LABS: CALCIUM 9.4 mg/dL (8.5-10.1)
[2021-04-03 06:43] LABS: ANION GAP 8 MMOL/L (8-16); BLOOD UREA NITROGEN 10.1 mg/dL (7-18); CO2 27 mmol/L (21-32); GLUCOSE,RANDOM 105 mg/dL (74-106)
[2021-04-03 06:45] LABS: CREATININE 1.1 mg/dL (0.55-1.3); SGOT/AST 14 U/L (15-37); SGPT/ALT 22 U/L (13-61)
[2021-04-03 06:47] LABS: BILIRUBIN,TOTAL 0.6 mg/dL (0.2-1)
[2021-04-03 06:48] LABS: ALK PHOS 99 U/L (45-117)
[2021-04-03 07:00] VITALS: BP 163/78; PULSE 77; TEMP 98.9
[2021-04-03 07:19] LABS: ALBUMIN 4.1 g/dl (3.4-5.0)
== END 2021-04-03 12:29 | disposition home or self-care (01) ==
LOC: JER 04:14
PROC: 3E033GC Introduction of Other Therapeutic Substance into Peripheral Vein, Percutaneous Approach (ICD-10-PCS; principal; 2021-04-03)
DX: U07.1 COVID-19 (principal); R51.9 Headache, unspecified
CPT/HCPCS: 36415; 70450-TC; 71046-TC-FY; 80053; 82550; 84484; 85025; 87804; 99285-25; C9803; U0003; U0005